=== PATIENT | male | born 1985 | race Caucasian/White ===

== ENCOUNTER 2019-04-09 08:56 | Emergency (ER) | payer SELFPAY ==
[~2019-04-09] VITALS: Ht 175.3 cm; Wt 85.3 kg
[2019-04-09] MEDS ORDERED: ONDANSETRON PF 4 MG/2 ML VIAL. IV ONE (10:00)
[2019-04-09] MEDS ORDERED: IV NORMAL SALINE 1000ML BAG 1,000 ML IV ONE ×2 (10:00→11:45)
[2019-04-09] MEDS ORDERED: FAMOTIDINE 20 MG/2 ML VIAL IVP ONE (10:15)
--- NOTE | 2019-04-09 10:22 | PHYS DOC ---
Past Medical History Past Medical History: No Pertinent History Additional Past Medical Histor: POOR HISTORIAN Past Surgical History: No Surgical History Smoking: Greater than 1 pack/day (2-3 packs of cigarettes per day) Alcohol Use: None Drug Use: Marijuana Adult General Chief Complaint Chief Complaint: NAUSEA/VOMITING/DIARRHA HPI HPI Patient is a 34 year old male who presents to the emergency department with complaints of body aches, fatigue, chills, nausea, vomiting, diarrhea, abdominal pain, throat discomfort, and a productive cough for the last 2 days. Patient sta antonio he has felt like he had a fever but has not measured a fever. He denies any dizziness, numbness, tingling, weakness, ear pain, dysuria, or increased urinary frequency. Patient states that after he has a coughing fit he often vomits. Patient reports that he has had at least 10 episodes of vomiting and 10 episodes of diarrhea in the last 24 hours, he denies any blood in his emesis or his stools. He currently rates his pain a 8/10 on the pain scale he denies any alleviating factors. Pt states he has been unable to eat or drink anything and keep it down since the onset of his sx. All other ROS is neg unless otherwise noted in HPI. Review of Systems Review of Systems See Above Current Medications Current Medications Current Medications Medications (Trade) Dose Ordered Sig/[facility] Start Time Stop Time Status Last Admin Dose Admin Famotidine (Pepcid Vial) 20 mg STK-MED ONCE 04/09/19 10:23 04/09/19 10:23 DC Ketorolac Tromethamine (Toradol 15mg Vial) 15 mg 1X ONCE 04/09/19 10:45 04/09/19 10:46 DC 04/09/19 11:08 15 MG Ondansetron HCl (Zofran) 4 mg 1X ONCE 04/09/19 10:00 04/09/19 10:01 DC 04/09/19 10:18 4 MG Prochlorperazine Edisylate (Compazine) 10 mg 1X ONCE 04/09/19 11:45 04/09/19 11:47 DC 04/09/19 11:56 10 MG Sodium Chloride 1,000 ml @ 1,000 mls/hr 1X ONCE 04/09/19 11:45 04/09/19 12:36 DC 04/09/19 11:56 1,000 MLS/HR Allergies Allergies Allergies Coded Allergies Type Severity Reaction Last Updated Verified Penicillins Allergy Intermediate "I'VE BEEN ALLERGIC SINCE I WAS BORN" 08/22/14 No Physical Exam Physical Exam See Above Constitutional: Well developed, well nourished, no acute distress, non-toxic appearance. [] HENT: Normocephalic, atraumatic, bilateral external ears normal, dry mucous membranes, no oral exudates, nose normal. [] Eyes: PERRLA, EOMI, conjunctiva normal, no discharge. [] Neck: Normal range of motion, no stridor. [] Cardiovascular:Heart rate regular rhythm, no murmur [] Lungs & Thorax: Bilateral breath sounds clear to auscultation, Respirations even and unlabored, no retractions, no respiratory distress [] Abdomen: Bowel sounds normal, soft, epigastric TTP, no rebound tenderness, no masses, no pulsatile masses. [] Skin: Warm, dry, no erythema, no rash. [] Back: No tenderness Extremities: No cyanosis, ROM intact, no edema. [] Neurologic: Alert and oriented X 3, no focal deficits noted. [] Psychologic: Affect normal, judgement normal, mood normal. [] Current Patient Data Vital Signs Vital Signs Date Time Temp Pulse Resp B/P (MAP) Pulse Ox O2 Delivery O2 Flow Rate FiO2 04/09/19 11:43 68 18 120/70 (87) 98 Room Air 04/09/19 09:10 98.0 98.0 Lab Values Laboratory Tests Test 04/09/19 10:15 04/09/19 11:42 White Blood Count 10.2 x10^3/uL (4.0-11.0) Red Blood Count 5.72 x10^6/uL (4.30-5.70) H Hemoglobin 17.5 g/dL (13.0-17.5) Hematocrit 50.2 % (39.0-53.0) Mean Corpuscular Volume 88 fL (79-100) Mean Corpuscular Hemoglobin 31 pg (25-35) Mean Corpuscular Hemoglobin Concent 35 g/dL (31-37) Red Cell Distribution Width 13.5 % (11.5-14.5) Platelet Count 220 x10^3/uL (140-400) Neutrophils (%) (Auto) 66 % (31-73) Lymphocytes (%) (Auto) 19 % (24-48) L Monocytes (%) (Auto) 15 % (0-9) H Eosinophils (%) (Auto) 0 % (0-3) Basophils (%) (Auto) 1 % (0-3) Neutrophils # (Auto) 6.7 x10^3/uL (1.8-7.7) Lymphocytes # (Auto) 1.9 x10^3/uL (1.0-4.8) Monocytes # (Auto) 1.5 x10^3/uL (0.0-1.1) H Eosinophils # (Auto) 0.0 x10^3/uL (0.0-0.7) Basophils # (Auto) 0.1 x10^3/uL (0.0-0.2) Sodium Level 134 mmol/L (136-145) L Potassium Level 4.0 mmol/L (3.5-5.1) Chloride Level 99 mmol/L (98-107) Carbon Dioxide Level 22 mmol/L (21-32) Anion Gap 13 (6-14) Blood Urea Nitrogen 15 mg/dL (8-26) Creatinine 1.4 mg/dL (0.7-1.3) H Estimated GFR (Cockcroft-Gault) 57.3 BUN/Creatinine Ratio 11 (6-20) Glucose Level 114 mg/dL (70-99) H Calcium Level 8.9 mg/dL (8.5-10.1) Total Bilirubin 0.6 mg/dL (0.2-1.0) Aspartate Amino Transferase (AST) 39 U/L (15-37) H Alanine Aminotransferase (ALT) 38 U/L (16-63) Alkaline Phosphatase 75 U/L (46-116) Total Protein 7.4 g/dL (6.4-8.2) Albumin 3.4 g/dL (3.4-5.0) Albumin/Globulin Ratio 0.9 (1.0-1.7) L Urine Collection Type Unknown Urine Color Yellow Urine Clarity Clear Urine pH 6.5 Urine Specific [place] 1.015 Urine Protein Negative mg/dL (NEG-TRACE) Urine Glucose (UA) Negative mg/dL (NEG) Urine Ketones (Stick) Negative mg/dL (NEG) Urine Blood Negative (NEG) Urine Nitrite Negative (NEG) Urine Bilirubin Negative (NEG) Urine Urobilinogen Dipstick 0.2 mg/dL (0.2 mg/dL) Urine Leukocyte Esterase Negative (NEG) Urine RBC 0 /HPF (0-2) Urine WBC 0 /HPF (0-4) Urine Bacteria 0 /HPF (0-FEW) Urine Opiates Screen Neg (NEG) Urine Methadone Screen Neg (NEG) Urine Barbiturates Neg (NEG) Urine Phencyclidine Screen Neg (NEG) Urine Amphetamine/Methamphetamine Neg (NEG) Urine Benzodiazepines Screen Neg (NEG) Urine Cocaine Screen Neg (NEG) Urine Cannabinoids Screen Pos (NEG) Urine Ethyl Alcohol Neg (NEG) Laboratory Tests 04/09/19 10:15 Laboratory Tests 04/09/19 10:15 EKG EKG [] Radiology/Procedures Radiology/Procedures [] Course & Med Decision Making Course & Med Decision Making Pertinent Labs and Imaging studies reviewed. (See chart for details) Patient is a 34-year-old male who presented to the emergency department for multiple complaints today including nausea, vomiting, diarrhea, productive cough, and pain with coughing. His CBC was unremarkable, CMP revealed a sodium 134, creatinine of 1.4, glucose of 114, an AST of 39 and was otherwise unremarkable; UA was unremarkable, UDS is positive for marijuana. The patient was given 2 L of normal saline, 4 mg Zofran, and 10 mg of Compazine the reported some relief of his nausea after those medications he was also given 20 mg of Pepcid IV, he denied any decrease in his epigastric pain after that medication. His vital signs are stable throughout his visit, orthostatic blood pressures were negative. The patient was advised that he likely has a viral stomach illness. Prescription written for Zofran. He was encouraged follow clear liquid diet for 24 hours, then advance to BRAT diet, and then as tolerated. Patient was instructed to follow up with his primary care doctor if symptoms persist, return to the ER symptoms worsen. Patient verbalized an understanding of home care, medications, follow-up, and return to ED instructions and was in agreement with the plan of care. [] Dragon Disclaimer Dragon Disclaimer This electronic medical record was generated, in whole or in part, using a voice recognition dictation system. Departure Departure Impression: Primary Impression: Abdominal pain Additional Impression: Nausea, vomiting, and diarrhea Disposition: HOME, SELF-CARE Condition: STABLE Referrals: NO PCP (PCP) Patient Instructions: Abdominal Pain (Nonspecific), Diarrhea, [id number], Diet for Diarrhea, Adult, Nausea and Vomiting, [id number] Additional Instructions: Fill prescriptions and use them as directed. Recommend clear fluids for the next 24 hours. Then you may advance to bland foods such as bananas, rice, applesauce, and dry toast. Follow-up with your primary care doctor in the next 1-2 days. Return to the emergency room if your symptoms worsen. Scripts Ondansetron Hcl (ONDANSETRON HCL) 4 Mg Tablet 1 TAB PO PRN Q6HRS PRN for NAUSEA/VOMITING for 3 Days, #10 TAB 0 Refills Prov: KAIT BRUSH SLICE PLUG CUTTER OPERATOR 04/09/19 Problem Qualifiers Primary Impression: Abdominal pain Abdominal location: unspecified location Qualified Codes: R10.9 - Unsp ecified abdominal pain KAIT [employer] PL[employer] CUTTER OPERATOR Apr 09, 2019 10:22
[2019-04-09] MEDS ORDERED: FAMOTIDINE 20 MG/2 ML VIAL ONE (10:23)
[2019-04-09 10:35] LABS: CALCIUM 8.9 mg/dL (8.5-10.1); CREATININE 1.4 mg/dL (0.7-1.3); GFR 57.3
[2019-04-09 10:36] LABS: BASO # 0.1 x10^3/uL (0.0-0.2); BASO % 1 % (0-3); EOS % 0 % (0-3); HEMATOCRIT 50.2 % (39.0-53.0); HEMOGLOBIN 17.5 g/dL (13.0-17.5); LYMPH # 1.9 x10^3/uL (1.0-4.8); LYMPH % 19 % (24-48); MEAN CORPUSCULAR HEMOGLOBIN 31 pg (25-35); MEAN CORPUSCULAR HGB CONC 35 g/dL (31-37); MEAN CORPUSCULAR VOLUME 88 fL (79-100); MONO # 1.5 x10^3/uL (0.0-1.1); MONO % 15 % (0-9); NEUT # 6.7 x10^3/uL (1.8-7.7); NEUT % 66 % (31-73); PLATELET COUNT 220 x10^3/uL (140-400); RED BLOOD COUNT 5.72 x10^6/uL (4.30-5.70); RED CELL DISTRIBUTION WIDTH 13.5 % (11.5-14.5); WHITE BLOOD COUNT 10.2 x10^3/uL (4.0-11.0)
[2019-04-09 10:40] LABS: ALBUMIN 3.4 g/dL (3.4-5.0); ALBUMIN/GLOBULIN RATIO 0.9 (1.0-1.7); TOTAL BILIRUBIN 0.6 mg/dL (0.2-1.0); TOTAL PROTEIN 7.4 g/dL (6.4-8.2)
[2019-04-09] MEDS ORDERED: KETOROLAC 15 MG/ML VIAL. IV ONE (10:45)
[2019-04-09 11:43] VITALS: BP 120/70
[2019-04-09] MEDS ORDERED: PROCHLORPERAZINE 10 MG/2 ML VIAL. IV ONE (11:45)
[2019-04-09 11:57] LABS: BILIRUBIN,URINE NEGATIVE (NEG); CLARITY,URINE CLEAR; COLOR,URINE YELLOW; NITRITE,URINE NEGATIVE (NEG); PH,URINE 6.5; PROTEIN,URINE NEGATIVE (NEG-TRACE); UROBILINOGEN,URINE 0.2 mg/dL (0.2 mg/dL)
[2019-04-09 11:58] LABS: BARBITURATES NEG (NEG); BENZODIAZEPINES NEG (NEG); CANNABINOIDS POS (NEG); COCAINE NEG (NEG); METHADONE NEG (NEG); OPIATES NEG (NEG); PHENCYCLIDINE NEG (NEG)
[2019-04-09 11:59] LABS: AMPHETAMINE/METHAMPHETAMINE NEG (NEG)
[2019-04-09 12:02] LABS: BACTERIA,URINE 0 /HPF (0-FEW); RBC,URINE 0 /HPF (0-2); WBC,URINE 0 /HPF (0-4)
--- NOTE | 2019-04-09 12:23 | NUR ---
Pt seems agitated as he reported being sweaty and that is the reason his drug and alcohol counselor stickers and his blood pressure cuff would not stay on. Pt abruptly moving his arms up and down. Pt told to just lay his arms at his side and staff will move him and his gown as needed. Pt became more agitated when while this tech attempted to slide his gown back up his arm and it pulled on the tape on his I.V. site. Pt refusing monitor equipment and asking for this tech to leave the room as well as get another staff member to come in to release him. Pt says, "If you're going to be a manpreet about it,...", he does not want to be attached to monitor by this tech nor does he want this tech to be in room.
[2019-04-09] MEDS ORDERED: ONDA4TAB11 PO (12:27)
== END 2019-04-09 12:31 | disposition home or self-care (01) ==
LOC: ER 08:56
DX: R10.9 Unspecified abdominal pain (principal); R11.2 Nausea with vomiting, unspecified; R19.7 Diarrhea, unspecified; Z88.0 Allergy status to penicillin
CPT/HCPCS: 36415; 80053; 80307; 81001; 85025; 96361; 96374; 96375; 99284; J0780; J1885; J2405; J3490; J7030

== ENCOUNTER 2021-06-06 06:44 | Emergency (ER) | payer SELFPAY ==
[~2021-06-06] VITALS: Ht 177.8 cm; Wt 90.9 kg
[~2021-06-06 06:44] MED LIST: ONDA-84 PO
--- NOTE | 2021-06-06 06:57 | PHYS DOC ---
Past Medical History Past Medical History: No Pertinent History Additional Past Medical Histor: POOR HISTORIAN Past Surgical History: No Surgical History Smoking Status: Current Some Day Smoker Alcohol Use: None Drug Use: Marijuana Adult General [facility] HPI Patient is a 36 year old male who presents with abdominal pain. Patient had onset of symptoms last night prior to going to bed. Complains of severe diffuse abdominal pain that is worse in the upper portions of his abdomen. Symptoms have been constant and worsening overnight. No diarrhea. He does have nausea with a couple episodes of vomiting. States he has had similar pain in the past but is uncertain what was the cause. Does not have chronic health conditions and takes no medications daily. No prior history of abdominal surgery. Review of Systems Review of Systems Constitutional: Denies fever or chills Eyes: Denies change in visual acuity, redness, or eye pain HENT: Denies nasal congestion or sore throat Respiratory: Denies cough or shortness of breath Cardiovascular: No additional information not addressed in HPI GI: As documented in HPI : Denies dysuria or hematuria Musculoskeletal: Denies back pain or joint pain Integument: Denies rash or skin lesions Neurologic: Denies headache, focal weakness Endocrine: Denies polyuria or polydipsia All other systems were reviewed and found to be within normal limits, except as documented in this note. Current Medications Current Medications Current Medications Medications (Trade) Dose Ordered Sig/Bart Start Time Stop Time Status Last Admin Dose Admin Famotidine (Pepcid Vial) 20 mg 1X ONCE 06/06/21 08:45 06/06/21 08:46 DC 06/06/21 09:24 20 MG Fentanyl Citrate (Fentanyl 2ml Vial) 75 mcg 1X ONCE 06/06/21 07:15 06/06/21 07:16 DC 06/06/21 07:26 75 MCG Hydromorphone HCl (Dilaudid) 1 mg 1X ONCE 06/06/21 10:30 06/06/21 10:31 DC 06/06/21 10:36 1 MG Info (CONTRAST GIVEN -- Rx MONITORING) 1 each PRN DAILY PRN 06/06/21 08:00 06/08/21 07:59 Iohexol (Omnipaque 300 Mg/ml) 75 ml 1X ONCE 06/06/21 08:00 06/06/21 08:01 DC 06/06/21 07:58 75 ML Ondansetron HCl (Zofran) 4 mg 1X ONCE 06/06/21 07:15 06/06/21 07:16 DC 06/06/21 07:25 4 MG Allergies Allergies Allergies Coded Allergies Type Severity Reaction Last Updated Verified Penicillins Allergy Intermediate "I'VE BEEN ALLERGIC SINCE I WAS BORN" 06/06/21 No Physical Exam Physical Exam Constitutional: Well developed, well nourished, moderate distress 2/2 pain, non- toxic appearance. HENT: Normocephalic, atraumatic, bilateral external ears normal, oropharynx moist, no oral exudates, nose normal Eyes: PERRLA, EOMI, conjunctiva normal, no discharge Neck: Normal range of motion, no tenderness, supple, no stridor Cardiovascular:Heart rate regular rhythm, no murmur Lungs & Thorax: Bilateral breath sounds clear to auscultation Abdomen: Mildly distended, diffusely tender to palpate and guarded Skin: Warm, dry, no erythema, no rash. Back: No tenderness, no CVA tenderness Extremities: No edema Neurologic: Alert and oriented X 3 Psychologic: Affect normal Current Patient Data Vital Signs Vital Signs Date Time Temp Pulse Resp B/P (MAP) Pulse Ox O2 Delivery O2 Flow Rate FiO2 06/06/21 10:36 18 95 Room Air 06/06/21 09:29 84 148/83 (104) 06/06/21 06:54 98.3 98.3 Lab Values Laboratory Tests Test 06/06/21 07:15 White Blood Count 14.4 x10^3/uL (4.0-11.0) H Red Blood Count 4.98 x10^6/uL (4.30-5.70) Hemoglobin 14.8 g/dL (13.0-17.5) Hematocrit 43.9 % (39.0-53.0) Mean Corpuscular Volume 88 fL (79-100) Mean Corpuscular Hemoglobin 30 pg (25-35) Mean Corpuscular Hemoglobin Concent 34 g/dL (31-37) Red Cell Distribution Width 12.8 % (11.5-14.5) Platelet Count 249 x10^3/uL (140-400) Neutrophils (%) (Auto) 76 % (31-73) H Lymphocytes (%) (Auto) 13 % (24-48) L Monocytes (%) (Auto) 10 % (0-9) H Eosinophils (%) (Auto) 1 % (0-3) Basophils (%) (Auto) 1 % (0-3) Neutrophils # (Auto) 11.0 x10^3/uL (1.8-7.7) H Lymphocytes # (Auto) 1.8 x10^3/uL (1.0-4.8) Monocytes # (Auto) 1.5 x10^3/uL (0.0-1.1) H Eosinophils # (Auto) 0.1 x10^3/uL (0.0-0.7) Basophils # (Auto) 0.1 x10^3/uL (0.0-0.2) Sodium Level 138 mmol/L (136-145) Potassium Level 3.9 mmol/L (3.5-5.1) Chloride Level 105 mmol/L (98-107) Carbon Dioxide Level 23 mmol/L (21-32) Anion Gap 10 (6-14) Blood Urea Nitrogen 15 mg/dL (8-26) Creatinine 1.0 mg/dL (0.7-1.3) Estimated GFR (Cockcroft-Gault) 83.6 BUN/Creatinine Ratio 15 (6-20) Glucose Level 125 mg/dL (70-99) H Lactic Acid Level 0.9 mmol/L (0.4-2.0) Calcium Level 8.4 mg/dL (8.5-10.1) L Total Bilirubin 0.3 mg/dL (0.2-1.0) Aspartate Amino Transferase (AST) 8 U/L (15-37) L Alanine Aminotransferase (ALT) 23 U/L (16-63) Alkaline Phosphatase 97 U/L (46-116) Troponin I High Sensitivity < 4 ng/L (4-75) L Total Protein 7.5 g/dL (6.4-8.2) Albumin 3.3 g/dL (3.4-5.0) L Albumin/Globulin Ratio 0.8 (1.0-1.7) L Amylase Level 50 U/L (25-115) Lipase 79 U/L (73-393) Laboratory Tests 06/06/21 07:15 Laboratory Tests 06/06/21 07:15 EKG EKG 07:25: No STEMI. NSR. Rate 81. Normal intervals. ST segments appear normal. Radiology/Procedures Radiology/Procedures [] Course & Med Decision Making Course & Med Decision Making Pertinent Labs and Imaging studies reviewed. (See chart for details) Mr. Esquivel is seen and examined on arrival to his room. He does seem to have significant distress due to pain. Abdomen exam is tender to palpate. Standard orders are placed. Fentanyl and Zofran ordered for pain control. 08:30: Continued pain and states no relief after fentanyl. Dilaudid is ordered. Work-up is pending 11:05: Currently feeling improved. Tolerating p.o. Was given GI cocktail and 3 total doses of pain medication in the ER. All results are reviewed and discussed with him. No acute lab findings other than mild leukocytosis. CT scan does not reveal acute findings other than possible enteritis or colitis which is consistent with his presentation. He is stable for discharge home. Recommended clear liquid diet over the next 24 hours. He is placed on ciprofloxacin. Given medications for pain and nausea at home. Follow-up with primary care doctor or he will come back to the ER for any poorly controlled s ymptoms at home Yvonne Disclaimer Yvonne Disclaimer This electronic medical record was generated, in whole or in part, using a voice recognition dictation system. Departure Departure Impression: Primary Impression: Enteritis Referrals: NO PCP (PCP) Patient Instructions: Viral Gastroenteritis Scripts Ondansetron (ONDANSETRON ODT) 4 Mg Tab.rapdis 1 TAB PO PRN Q6-8HRS for nausea or vomiting, #10 TAB Prov: ARA HERNANDEZ DO 06/06/21 Hydrocodone/Acetaminophen (Hydrocodone-Acetamin 5-325 mg) 1 Each Tablet 2 EACH PO TID for pain, #16 TAB Prov: ARA HERNANDEZ DO 06/06/21 Ciprofloxacin Hcl (CIPROFLOXACIN HCL) 500 Mg Tablet 1 TAB PO BID, #14 TAB Prov: ARA HERNANDEZ DO 06/06/21 ARA HERNANDEZ DO Jun 06, 2021 06:57
[2021-06-06] MEDS ORDERED: fentaNYL PF VIAL 100 MCG/2 ML VIAL IVP ONE (07:15)
[2021-06-06] MEDS ORDERED: ONDANSETRON PF 4 MG/2 ML VIAL. IVP ONE (07:15)
[2021-06-06 07:35] LABS: BASO # 0.1 x10^3/uL (0.0-0.2); BASO % 1 % (0-3); EOS # 0.1 x10^3/uL (0.0-0.7); EOS % 1 % (0-3); HEMATOCRIT 43.9 % (39.0-53.0); HEMOGLOBIN 14.8 g/dL (13.0-17.5); LYMPH # 1.8 x10^3/uL (1.0-4.8); LYMPH % 13 % (24-48); MEAN CORPUSCULAR HEMOGLOBIN 30 pg (25-35); MEAN CORPUSCULAR HGB CONC 34 g/dL (31-37); MEAN CORPUSCULAR VOLUME 88 fL (79-100); MONO # 1.5 x10^3/uL (0.0-1.1); MONO % 10 % (0-9); NEUT % 76 % (31-73); PLATELET COUNT 249 x10^3/uL (140-400); RED BLOOD COUNT 4.98 x10^6/uL (4.30-5.70); RED CELL DISTRIBUTION WIDTH 12.8 % (11.5-14.5); WHITE BLOOD COUNT 14.4 x10^3/uL (4.0-11.0)
[2021-06-06 07:42] LABS: CALCIUM 8.4 mg/dL (8.5-10.1); GFR 83.6; POTASSIUM 3.9 mmol/L (3.5-5.1)
[2021-06-06 07:49] LABS: ALBUMIN 3.3 g/dL (3.4-5.0); ALBUMIN/GLOBULIN RATIO 0.8 (1.0-1.7); TOTAL BILIRUBIN 0.3 mg/dL (0.2-1.0); TOTAL PROTEIN 7.5 g/dL (6.4-8.2)
[2021-06-06] MEDS ORDERED: CONTRAST GIVEN. MC PRN (08:00)
[2021-06-06] MEDS ORDERED: IOHEXOL 300 MG/ML 100ML VIAL. IV ONE (08:00)
--- NOTE | 2021-06-06 08:25 | RAD ---
EXAM: Abdomen and pelvis CT with intravenous contrast. HISTORY: Pain. TECHNIQUE: Computed tomographic images of the abdomen and pelvis were obtained following the administ ration of intravenous contrast. Multiplanar reformatting was performed. *One or more of the following individualized dose reduction techniques were utilized for this examina tion: 1. Automated exposure control. 2. Adjustment of the mA and/or kV according to patient size. 3. Use of iterative reconstruction technique. COMPARISON: 08/22/2014. FINDINGS: Evaluation of the lower thorax demonstrate minimal left posterior dependent atelectasis. Th ere is no infiltrate or pleural effusion. The heart is normal in size. There is a tiny suspected cyst within the inferior right hepatic lobe. There is no suspicious hepatic lesion. The gallbladder, panc reas, spleen and left adrenal gland are unremarkable. There is a 1.2 cm nodule or nodular thickening of the inna of the right adrenal gland. The kidneys are unremarkable. There is no appendicitis. There are nonspecific air and fluid-filled loops of small bowel within the midabdomen. There is mild circumferential wall thickening involving the mid small bowel proximal to relative decompressed dista l small bowel. There is segmental wall thickening involving the proximal to mid sigmoid colon. There is slight stranding within the root of the mesentery and there are multiple prominent mesenteric lymp h nodes. The aorta is normal in caliber. The bladder is unremarkable. There is no suspicious or acute osseous finding. IMPRESSION: 1. Segmental wall thickening involving the proximal to mid sigmoid colon, the appearance of which fav ors acute colitis. Correlate for infectious or inflammatory etiologies. 2. Mildly distended air and fluid-filled loops of mid small bowel extending to a segment of mild circ umferential wall thickening, appearance of which suggests acute enteritis. There is no convincing obs truction. 3. Mild fatty stranding and prominent lymph nodes within the root of mesentery. This may be reactive or physiologic in a patient of this age. 4. 1.2 cm nodule or nodular thickening involving the inna of the right adrenal gland. There is no con vincing correlate on the prior exam. This is likely benign. However, adrenal protocol CT or MRI can b e performed to confirm benignity. Electronically signed by: Rhianna Nichols MD (06/06/2021 8:22 AM) [id number]
[2021-06-06] MEDS ORDERED: FAMOTIDINE 20 MG/2 ML VIAL IVP ONE (08:45)
[2021-06-06] MEDS ORDERED: HYDROmorphone 2 MG/ML INJ. IM ONE (08:45)
[2021-06-06] MEDS ORDERED: HYDROmorphone 2 MG/ML INJ. IVP ONE (10:30)
[2021-06-06] MEDS ORDERED: HYDR-2759 PO (11:08)
[2021-06-06] MEDS ORDERED: ONDA4TAB12 PO (11:08)
[2021-06-06] MEDS ORDERED: CIPR500T2 PO (11:08)
[2021-06-06 11:32] VITALS: BP 136/81
[2021-06-06] MEDS ORDERED: ONDANSETRON PF 4 MG/2 ML VIAL. IVP PRN (12:00)
[2021-06-06] MEDS ORDERED: fentaNYL PF VIAL 100 MCG/2 ML VIAL IVP PRN (12:00)
[2021-06-06] MEDS ORDERED: IV RINGERS,LACTATED 1000ML 1,000 ML IV ONE (12:00)
[2021-06-06] MEDS: HYDROmorphone 2 MG/ML INJ. IVP ONE ×2 (12:00→12:01)
[2021-06-06] MEDS ORDERED: metroNIDAZOLE 500mg PREMIX 500 MG/100 ML BAG IV ONE (12:00)
--- NOTE | 2021-06-07 03:42 | EKG ---
[facility] [address] [place] [address] Test Date: 2021-06-06 Test Time: 07:20:49 Pat Name: RIGOBERTO BE Department: Room: Gender: M Chef Concierge: : 1985 Requested By: ARA HERNANDEZ Order Number: [id number] Reading MD: Joselito Saravia Measurements Intervals [place] Rate: 81 P: 38 SD: 146 QRS: 37 QRSD: 88 T: 20 QT: 348 QTc: 405 Interpretive Statements SINUS RHYTHM NORMAL ECG Electronically Signed On 06-07-2021 19:30:59 LONGSHORE EQUIPMENT OPERATOR by Joselito Saravia
== END 2021-06-06 12:13 | disposition home or self-care (01) ==
LOC: ER 06:44 → 5 NORTH 11:45 → UNDOADMOB 11:45 → ER 12:13
DX: K52.9 Noninfective gastroenteritis and colitis, unspecified (principal); F17.200 Nicotine dependence, unspecified, uncomplicated; Z88.0 Allergy status to penicillin
CPT/HCPCS: 36415; 74177; 80053; 82150; 83605; 83690; 84484; 85025; 93005; 96372; 96374; 96375; 99285; J1170; J2405; J3010; J3490; Q9967